=== PATIENT | male | born 1965 | race American Indian/Alaskan Native ===

== ENCOUNTER 2017-04-06 10:22 | Emergency (ER) | payer SELFPAY ==
[2017-04-06 11:24] LABS: Basophils # (Auto) 0.1 K/mm3 (0.0-0.1); Basophils % (Auto) 0.7 % (0.0-1.8); Eosinophils % (Auto) 0.1 % (0.0-4.3); Hematocrit 34.8 % (35.5-45.6); Hemoglobin 10.7 gm/dl (11.8-15.2); Lymphocytes # (Auto) 0.5 K/mm3 (1.2-5.4); Lymphocytes % (Auto) 5.9 % (13.4-35.0); Mean Corpuscular HGB Conc 31 % (32-34); Mean Corpuscular Hemoglobin 22 pg (28-32); Mean Corpuscular Volume 71 fl (84-94); Monocytes # (Auto) 1.2 K/mm3 (0.0-0.8); Platelet Count 316 K/mm3 (140-440); Red Blood Count 4.88 M/mm3 (3.65-5.03); Red Cell Distribution Width 19.8 % (13.2-15.2)
[2017-04-06 11:34] LABS: INR 0.94 (0.87-1.13)
[2017-04-06 11:35] LABS: Partial Thromboplastin Time 24.7 Sec. (24.2-36.6)
[2017-04-06 11:46] LABS: Creatine Kinase MB 5.2 ng/mL (0.0-4.0)
[2017-04-06 11:47] LABS: Alanine Aminotransferase 42 units/L (7-56); Albumin 4.4 g/dL (3.9-5); BUN/Creatinine Ratio 14; Blood Urea Nitrogen 13 mg/dL (9-20); Calcium 8.6 mg/dL (8.4-10.2); Hemolysis Index 3
[2017-04-06 11:48] LABS: Bilirubin,Direct < 0.2 mg/dL (0-0.2)
[2017-04-06] MEDS ORDERED: NACL 0.9% 1000 ML 1,000 ML IV ONE ×2 (16:43→18:14)
--- NOTE | 2017-04-06 16:47 | Emergency Department Report ---
Chief Complaint: Syncope Stated Complaint: DIZZY/NUMBNESS - HPI History of Present Illness: 51-year-old male presents to the emergency department after having 2 episodes of near syncope today at work. This was followed by some paresthesias and/or numbness in the hands. He has a history of previous PE, IVC filter in place. He says he has known left lower extremity DVT but has been unable to afford anticoagulation. The patient had some labs done prior to MSE that show an elevated d-dimer of 550 and a CK level of greater than 3000. - ROS Review of Systems: Patient is positive for dizziness, near syncope, numbness and paresthesias Patient is negative for chest pain, shortness of breath, fever, headache, slurred speech or any neurological deficits - Exam Vital Signs: Vital Signs 04/06/17 04/06/17 10:39 16:11 Temperature 98.4 F Pulse Rate 94 H 95 H Respiratory 16 Rate Blood Pressure 164/106 Blood Pressure 176/116 [Right] O2 Sat by Pulse 100 100 Oximetry MSE screening note: Focused history and physical exam performed. Due to findings the following was ordered: Based on the elevated d-dimer, the patient has been ordered a CT angiography of the chest. Based on the near-syncope and dizziness, he will have a CT of the head. I ordered for an IV to be placed with 1 L of fluid secondary to the elevated CK level. This patient will be seen on the main ED side. ED Medical Decision Making - Lab Data Result diagrams: 04/06/17 11:06 04/06/17 11:06 ED Disposition for [facility] Condition: Stable Referrals: PRIMARY CARE [Primary Care Provider] - 3-5 Days
--- NOTE | 2017-04-06 18:14 | Emergency Department Report ---
ED General Adult HPI - General Chief complaint: Syncope Stated complaint: DIZZY/NUMBNESS Time Seen by Provider: 04/06/17 17:59 Source: patient, RN notes reviewed Mode of arrival: Ambulatory Limitations: No Limitations - History of Present Illness Initial comments: This is a 51-year-old male who was previously unknown to this provider. Patient has a history of DVT, pulmonary embolus, IVC filter. Patient is adamant that all these were diagnosed over 2 years ago in [place]. Patient reports not being on systemic anticoagulation for over a year and a half. 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 Patient presents to the ER with a complaint of resolved fingertip numbness, and near syncope. Patient reports that he was at work earlier on today," was feeling off." He is adamant that he did not pass out. He indicates no chest pain, no shortness of breath. Patient indicates that he felt quite anxious at that time, and therefore felt like he was breathing rapidly. His symptoms are all resolved now. He denies leg pain, leg swelling, gluteal pain, statin medication, recent heavy lifting, cocaine use. His symptoms does not radiate anywhere, they did not have any exacerbating or relieving factors. Patient has been in the ER for hours at this time, and has no complaints, and would like to go home. -: Gradual Location: left, right, upper extremity Consistency: now resolved Improves with: none Worsens with: none Associated Symptoms: denies: confusion, chest pain, cough, diaphoresis, fever/ chills, headaches, loss of appetite, malaise, nausea/vomiting, rash, seizure, shortness of breath, weakness - Related Data Allergies Allergy/AdvReac Type Severity Reaction Status Date / Time No Known Allergies Allergy Unverified 04/06/17 10:47 ED Review of Systems ROS: Stated complaint: DIZZY/NUMBNESS Other details as noted in HPI Comment: All other systems reviewed and negative (see hpi) ED Past Medical Hx - Past Medical History Previous Medical History?: Yes Additional medical history: DVT left leg, IPTV filter to IVC. - Surgical History Past Surgical History?: No - Social History Smoking Status: Never Smoker Substance Use Type: Alcohol ED Physical Exam - General Limitations: No Limitations General appearance: alert, in no apparent distress - Head Head exam: Present: atraumatic, normocephalic - Eye Eye exam: Present: normal appearance, EOMI. Absent: nystagmus - ENT ENT exam: Present: normal exam, normal orophraynx, mucous membranes moist - Neck Neck exam: Present: normal inspection, full ROM. Absent: tenderness, meningismus - Respiratory Respiratory exam: Present: normal lung sounds bilaterally. Absent: respiratory distress - Cardiovascular Cardiovascular Exam: Present: regular rate, normal rhythm, normal heart sounds. Absent: bradycardia, tachycardia, irregular rhythm, systolic murmur, diastolic murmur, rubs, gallop - GI/Abdominal GI/Abdominal exam: Present: soft, normal bowel sounds. Absent: distended, tenderness, guarding, rebound, rigid, pulsatile mass - Rectal Rectal exam: Present: deferred - Extremities Exam Extremities exam: Present: normal inspection, full ROM, normal capillary refill. Absent: tenderness, pedal edema, joint swelling, calf tenderness - Back Exam Back exam: Present: normal inspection, full ROM, other (the upper and lower extremity compartments are soft. There is no pain with passive range of motion. ). Absent: tenderness, CVA tenderness (R), paraspinal tenderness, vertebral tenderness - Neurological Exam Neurological exam: Present: alert, oriented X3, CN II-XII intact, normal gait, other (Extraocular movements intact. Tongue midline. No facial droop. Facial sensation intact to light touch in the V1, V2, V3 distribution bilaterally. 5 and 5 strength in 4 extremities.. Sensation is intact to light touch in 4 extremities.). Absent: motor sensory deficit - Psychiatric Psychiatric exam: Present: normal affect, normal mood - Skin Skin exam: Present: warm, dry, intact, normal color. Absent: rash ED Course Vital Signs 04/06/17 04/06/17 10:39 16:11 Temperature 98.4 F Pulse Rate 94 H 95 H Respiratory 16 Rate Blood Pressure 164/106 Blood Pressure 176/116 [Right] O2 Sat by Pulse 100 100 Oximetry - Reevaluation(s) Reevaluation #1: 04/06/17 20:14 Differential diagnosis, including but not limited to: Anxiety, panic attack, pulmonary embolus, orthostasis, electrolyte derangement, incidental myositis Assessment and plan: 51-year-old male with a complaint of near syncope, elevated d-dimer (this is ordered prior to my evaluation), normal renal function , found incidentally to have elevated CK of 3000. Hasn't recently worked out, not taking statin medication, muscular compartment soft. Cranium kinase is elevated, however this will decrease on its own with oral and IV hydration. Noncontrast CT scan of the brain was negative, patient's symptoms were bilateral and on the distal fingertips, therefore not anatomically consistent with stroke or ischemic event, and nih score of 0, GCS of 15. CT scan of the chest negative for pulmonary embolus. Initial EKG demonstrates positively deflected QRS complex and one in aVL with poor R-wave progression, subsequent to EKGs demonstrate negatively deflected QRS complex in 1 and aVL as well as persistent R-wave progression but is poor. Initial EKG may be an error. Patient has been observed in the ER for 9 hours without clinical decompensation. Repeat troponin and creatinine kinase have been sent. Patient indicates in for recheck of his creatinine kinase. He is especially instructed as to the importance of drinking plenty of fluids. He is reliable to follow-up with a primary care doctor or make ready worker for his abnormal EKG within the next few days ED Medical Decision Making - Lab Data Result diagrams: 04/06/17 11:06 04/06/17 11:06 Vital Signs 04/06/17 04/06/17 10:39 16:11 Temperature 98.4 F Pulse Rate 94 H 95 H Respiratory 16 Rate Blood Pressure 164/106 Blood Pressure 176/116 [Right] O2 Sat by Pulse 100 100 Oximetry - EKG Data -: EKG Interpreted by [place] EKG shows normal: sinus rhythm Rate: normal - EKG Data 04/06/17 20:17 EKG #1 demonstrates normal sinus, 80 bpm, normal axis, normal intervals, poor R wave progression, not morphologically consistent with ST elevation myocardial infarction. EKG #2 demonstrates normal sinus, 76 bpm, rightward axis, poor R wave progression, borderline high left ventricular voltage, abnormal EKG, not having chest pain, not morphologically consistent with ST elevation myocardial infarction. EKG #3 is unchanged from EKG #2. EKG #2/3 both have nonspecific changes but compared to prior EKG #1. - Radiology Data Radiology results: report reviewed, image reviewed Noncontrast CT scan of the brain is negative. CT scan of the chest is negative. Critical care attestation.: If time is entered above; I have spent that time in minutes in the direct care of this critically ill patient, excluding procedure time. ED Disposition Clinical Impression: Near syncope, Myositis, Abnormal EKG Disposition: DC-01 TO HOME OR SELFCARE Is pt being admited?: No Does the pt Need Aspirin: No Condition: Stable Instructions: Hypertension (ED) Additional Instructions: Follow up with a primary care doctor or make ready worker within the next 3 days. Alternatively, patient may follow up in this emergency room or with an urgent care center for repeat blood test on creatine kinase. Drink plenty of water, 6- 8 cups of water per day. Please return to the ER right away with new pain, worsened pain, migration of pain, fevers, chills, lethargy, irritability, projectile vomiting, change in mental status, confusion, inability to tolerate liquid feeds. Referrals: PRIMARY CARE, [Primary Care Provider] - 3-5 Days [facility] [Provider Group] - 3-5 Days [facility] [Provider Group] - 3-5 Days Forms: Work/School Release Form(ED)
--- NOTE | 2017-04-06 19:47 | Cat Scan Report ---
FINAL REPORT PROCEDURE: CT HEAD/BRAIN WO CON TECHNIQUE: Computerized tomography of the head was performed without contrast material. HISTORY: Dizziness, Near Syncope COMPARISON: No prior studies are available for comparison. FINDINGS: Skull and scalp: Normal. Paranasal sinuses: Normal. Ventricles and subarachnoid spaces: Normal. Cerebrum: No evidence of hemorrhage, acute infarction or mass . Cerebellum and brainstem: No evidence of hemorrhage, acute infarction or mass. Vasculature: Normal. Comments: Mild diffuse atrophy with mild periventricular microischemic change and central lacunar infarct disease. IMPRESSION: No acute intracranial pathology
--- NOTE | 2017-04-06 19:54 | Cat Scan Report ---
FINAL REPORT PROCEDURE: CT ANGIO CHEST TECHNIQUE: Computerized tomographic angiography of the chest was performed after the IV injection of iodinated nonionic contrast including image processing. The image data was postprocessed using 2-dimensional multiplanar reformatted (MPR) and 3-dimensional (MIP and/or volume rendered) techniques. HISTORY: Elevated dimer, near syncope, hx of clots COMPARISON: No prior studies are available for comparison. FINDINGS: Heart and pericardium: Normal. Thoracic aorta: Normal. Pulmonary vasculature: Normal. Lymph nodes: No enlarged thoracic lymph nodes. Lungs: Normal. Pleural space: No effusion, thickening, or pneumothorax. Musculoskeletal structures: No significant abnormality. Upper abdominal structures: Enlarged liver. Moderate to large hiatal hernia. IMPRESSION: No PE seen
[2017-04-06 22:00] VITALS: BP 145/97
== END 2017-04-06 22:45 | disposition home or self-care (01) ==
LOC: ED 10:22
DX: R55 Syncope and collapse (principal); M60.9 Myositis, unspecified; R94.31 Abnormal electrocardiogram [ECG] [EKG]; Z86.718 Personal history of other venous thrombosis and embolism
CPT/HCPCS: 36415; 70450; 71275; 80048; 80074; 82550; 82553; 83735; 83880; 84484; 85025; 85379; 85610; 85730; 93005; 93010; 96360; 99284; J7030; Q9967